=== PATIENT | female | born 1985 | race Caucasian/White ===

== ENCOUNTER → 2016-05-26 | Outpatient (CLI) | payer BC ==
[~2016-05-26] MED LIST: ADDE10 PO; ADDE5TAB PO; DIAZ5 PO; DICL75 PO; DOXY100C PO; HYDR-3535 PO; IBUP-232 PO; METR-1 PO; OXYC1TAB63 PO; ROBA750T3 PO; SAFYTAB PO; SENN1TAB PO; Z.0.BCPILL PO
[2016-05-26 12:11] LABS: BASOPHIL % 0.3 % (0.0-2.0); EOSINOPHIL # 0.1 TH/MM3 (0-0.4); EOSINOPHIL % 0.9 % (0.0-4.0); HEMATOCRIT 39.3 % (35.0-46.0); HEMO FLAGS DIFF FINAL; LYMPH % 29.3 % (9.0-44.0); LYMPHOCYTE # 2.2 TH/MM3 (1.0-4.8); MEAN CELL VOLUME 86.5 FL (80.0-100.0); MEAN CORPUSCULAR HGB CONC 34.6 % (32.0-36.0); MONO % 4.1 % (0.0-8.0); NEUT % 65.4 % (16.0-70.0); PLATELET COUNT 250 TH/MM3 (150-450); RED BLOOD COUNT 4.55 MIL/MM3 (4.00-5.30); RED CELL DISTRIBUTION WIDTH 12.5 % (11.6-17.2); WHITE BLOOD COUNT 7.6 TH/MM3 (4.0-11.0)
[2016-05-26 12:18] LABS: BACTERIA, URINE RARE /hpf; BLOOD, URINE NEG (NEG); GLUCOSE,URINE NEG (NEG); KETONE, URINE NEG (NEG); MUCUS URINE FEW /lpf (OCC); NITRITE,URINE NEG (NEG); PH, URINE 6.5 (5.0-8.5); SQUAMOUS EPITHELIAL CELL URINE <1 /hpf (0-5); URINE COLOR LIGHT-YELLOW (YELLW/STRAW)
[2016-05-26 12:36] LABS: ANION GAP 9 MEQ/L (5-15); BLOOD UREA NITROGEN 8 MG/DL (7-18); CHLORIDE 105 MEQ/L (98-107); GLOMERULAR FILTRATION RATE 89 ML/MIN (>89); GLUCOSE,FASTING 87 MG/DL (74-99); POTASSIUM 4.2 MEQ/L (3.5-5.1); SODIUM (NA) 140 MEQ/L (136-145)
[2016-05-26 12:42] LABS: BHCG SCREEN QUALITATIVE LESS THAN 1 MIU/ML (0-5)
== END ==
LOC: CPRE 11:24
PROVIDERS: ATTEND Obstetrics & Gynecology
DX: Z01.812 Encounter for preprocedural laboratory examination (principal); N92.0 Excessive and frequent menstruation with regular cycle; N94.6 Dysmenorrhea, unspecified; N94.10 Unspecified dyspareunia; N92.6 Irregular menstruation, unspecified
CPT/HCPCS: 36415; 80048; 81001; 84703; 85025; 86850; 86900; 86901

== ENCOUNTER 2016-05-28 09:25 | Observation (INO) | payer BC ==
[~2016-05-28] VITALS: Ht 170.2 cm; Wt 72.3 kg
[~2016-05-28 09:25] MED LIST changes: -ADDE5TAB PO; -DICL75 PO; -DOXY100C PO; -HYDR-3535 PO; -IBUP-232 PO; -METR-1 PO; -OXYC1TAB63 PO; -ROBA750T3 PO; -SAFYTAB PO; -SENN1TAB PO; -Z.0.BCPILL PO
[2016-05-28] MEDS ORDERED: LACTATED RINGER'S 1000 ML IV SCH (10:00)
[2016-05-28] MEDS ORDERED: SODIUM CHLORID 0.9% 500 ML IV SCH (10:00)
[2016-05-28] MEDS ORDERED: ceFAZolin 1,000 MG/NS 100 ML IV SCH ×2 (10:15)
[2016-05-28] MEDS ORDERED: INSULIN HUMAN REGULAR 1,000 UNITS/10 ML VIAL SQ PRN (10:15)
[2016-05-28] MEDS ORDERED: METOPROLOL TARTRATE 25 MG TAB PO PRN (10:15)
[2016-05-28 10:17] VITALS: BP 100/80; PULSE 74; RESP 20; TEMP 98; O2SAT 100
[2016-05-28] MEDS ORDERED: SAFYTAB PO (10:17)
[2016-05-28] MEDS ORDERED: ACETAMINOPHEN 1000 MG/100 ML VIAL IV ONE ×2 (13:33→17:16)
[2016-05-28] MEDS ORDERED: fentaNYL CITRATE 250 MCG/5 ML AMP ONE (15:51)
[2016-05-28] MEDS ORDERED: MIDAZOLAM HCL 2 MG/2 ML VIAL ONE (16:16)
[2016-05-28] MEDS ORDERED: ceFAZolin INJ 1,000 MG VIAL IV ONE (17:35)
[2016-05-28] MEDS ORDERED: MORPHINE SULFATE 4 MG/ML INJ ONE (18:50)
[2016-05-28] MEDS ORDERED: diphenhydrAMINE HCL 25 MG CAP PO PRN (19:45)
[2016-05-28] MEDS ORDERED: SODIUM CHLORIDE 0.9% FLUSH 5 ML FLUSH FLUSH PRN (19:45)
[2016-05-28] MEDS ORDERED: PROMETHAZINE HCL 25 MG TAB PO PRN (19:45)
[2016-05-28] MEDS ORDERED: oxyCODONE/ACETAMINOPHEN 5 MG/325 MG TAB PO PRN (19:45)
[2016-05-28] MEDS ORDERED: ZOLPIDEM TARTRATE 5 MG TAB PO PRN (19:45)
[2016-05-28] MEDS ORDERED: ONDANSETRON HCL 4 MG/2 ML VIAL IVP PRN (19:45)
[2016-05-28] MEDS ORDERED: HYDROmorphone HCL PF 1 MG/ML VIAL IVP PRN (19:45)
[2016-05-28] MEDS ORDERED: ONDANSETRON ODT 4 MG TAB PO PRN (19:45)
[2016-05-28] MEDS ORDERED: *morphine SULFATE 8 MG/ML PERIprocedure ONLY ONE ×2 (19:50→20:08)
[2016-05-28] MEDS ORDERED: *MEPERIDINE 25 MG INJ VIAL PERIprocedural Use ONLY ONE (19:50)
[2016-05-28] MEDS: LACTATED RINGER'S 1000 ML INJ 1,000 ML IV SCH (20:00)
[2016-05-28 20:30] VITALS: O2SAT 99
[2016-05-28 21:00] VITALS: BP 113/68; PULSE 71; RESP 18; TEMP 97.5
[2016-05-28] MEDS ORDERED: SODIUM CHLORIDE 0.9% FLUSH 5 ML FLUSH FLUSH SCH (21:00)
[2016-05-28] MEDS: DOCUSATE SODIUM 100 MG CAP PO SCH (21:00)
[2016-05-28] MEDS: IBUPROFEN 600 MG TAB PO PRN (21:53)
[2016-05-29] MEDS: oxyCODONE/ACETAMINOPHEN 5 MG/325 MG TAB PO PRN ×2 (01:09→08:02)
[2016-05-29 01:12] VITALS: BP 102/65; PULSE 86; RESP 18; TEMP 97.7
[2016-05-29] MEDS: LACTATED RINGER'S 1000 ML INJ 1,000 ML IV SCH (03:47)
[2016-05-29] MEDS: IBUPROFEN 600 MG TAB PO PRN (03:50)
[2016-05-29 04:04] VITALS: BP 105/67; PULSE 82; RESP 18; TEMP 98
[2016-05-29 06:06] LABS: AUTOMATED NEUTROPHIL # 6.4 TH/MM3 (1.8-7.7); BASOPHIL % 0.1 % (0.0-2.0); HEMO FLAGS DIFF FINAL; LYMPH % 10.6 % (9.0-44.0); LYMPHOCYTE # 0.8 TH/MM3 (1.0-4.8); MEAN CELL VOLUME 86.4 FL (80.0-100.0); MEAN CORPUSCULAR HEMOGLOBIN 30.1 PG (27.0-34.0); MEAN CORPUSCULAR HGB CONC 34.9 % (32.0-36.0); MONO % 2.5 % (0.0-8.0); NEUT % 86.8 % (16.0-70.0); PLATELET COUNT 198 TH/MM3 (150-450); RED BLOOD COUNT 3.94 MIL/MM3 (4.00-5.30); RED CELL DISTRIBUTION WIDTH 12.5 % (11.6-17.2); WHITE BLOOD COUNT 7.3 TH/MM3 (4.0-11.0)
[2016-05-29 06:32] LABS: POTASSIUM 4.4 MEQ/L (3.5-5.1)
[2016-05-29 07:50] VITALS: BP 105/71; PULSE 79; RESP 18; TEMP 97.9
[2016-05-29] MEDS: DOCUSATE SODIUM 100 MG CAP PO SCH (08:01)
--- NOTE | 2016-05-29 08:28 | HHI.PR ---
Subjective Remarks Doing well, pain is well controlled, eating well. Objective Vital Signs Vital Signs Date Time Temp Pulse Resp B/P Pulse Ox O2 Delivery O2 Flow Rate FiO2 05/29/16 04:04 98.0 82 18 105/67 05/29/16 01:12 97.7 86 18 102/65 05/28/16 21:00 97.5 71 18 113/68 05/28/16 20:30 97.5 71 14 131/79 99 Nasal Cannula 3 05/28/16 20:15 73 14 130/78 99 Nasal Cannula 3 05/28/16 20:00 79 14 130/78 99 Nasal Cannula 3 05/28/16 19:45 88 14 134/79 99 Nasal Cannula 3 05/28/16 19:41 97.7 110 15 139/85 99 Nasal Cannula 3 05/28/16 10:17 98.0 74 20 100/80 100 I/O 05/28/16 05/28/16 05/28/16 05/29/16 05/29/16 05/29/16 07:00 15:00 23:00 07:00 15:00 23:00 Intake Total 2675 ml 1150 ml Output Total 175 ml 1270 ml Balance 2500 ml -120 ml Intake Oral 400 ml 400 ml IV Total 775 ml 750 ml Other 1500 ml Output Urine Total 100 ml 1270 ml Estimated Blood Loss 75 ml Other 0 ml Result Diagram: 05/29/1651705/29/1618 Objective Remarks Chest is clear, regular rate and rhythm. Abdomen is soft and non-distended. Incision is clean and dry. Ext no CCE. A/P Assessment and Plan Post Op Day 1 Doing well Home today and return to office in two weeks. Shalini Youssef MD May 29, 2016 08:28
--- NOTE | 2016-05-29 08:28 | MP ---
cc: Shalini YOUSSEF Corrected Copy: 05/29/16 DATE OF SURGERY 05/28/2016 PREOPERATIVE DIAGNOSIS 1. Menorrhagia 2. Dysmenorrhea 3. Dysfunctional uterine bleeding 4. Severe deep dyspareunia POSTOPERATIVE DIAGNOSIS 1. Menorrhagia 2. Dysmenorrhea 3. Dysfunctional uterine bleeding 4. Severe deep dyspareunia PROCEDURE Laparoscopic-assisted vaginal hysterectomy and bilateral salpingectomy. ANESTHESIA General endotracheal intubation SURGEON Socorro Youssef MD FINDINGS Examination under anesthesia, the vagina was clean. The cervix was parous without lesions. The uterus was normal size, shape and consistency, anteverted and anteflexed and freely mobile. The adnexa were negative for masses. The laparoscopic exam revealed normal uterus, normal tubes, normal ovaries, normal anterior and posterior cul-de-sac. COMPLICATIONS None COUNTS The counts were correct. ESTIMATED BLOOD LOSS 75 cc. FLUIDS Crystalloids CONDITION The patient tolerated the procedure well and went to the recovery room in good condition. PROCEDURE IN DETAIL The patient was taken to the operating room, identified by name band and verbally given a general anesthetic and placed in dorsal lithotomy position. She was prepped and draped in the usual sterile fashion and a time-out was taken. Once we all agreed, proceeded with the examination under anesthesia and placing the Rodriguez catheter. A weighted speculum was placed in the vagina, the anterior lip of the cervix grasped with a single-tooth tenaculum. The cervix was then cannulized with a Hulka clamp for uterine manipulation. Changing our gloves, we went to the umbilical area. A small subumbilical incision was made and a #5 trocar was introduced under direct vision without difficulty. A pneumoperitoneum was created with 3 liters of CO2. Inferior lateral to the umbilicus on the left we put a 10-mm port under direct vision and a 5-mm port on the right for manipulation. At this point we placed her in Trendelenburg, visualized all the internal organs and proceeded with the hysterectomy. The round ligaments were taken down bilaterally and a bladder flap was created with the harmonic 7 scalpel. The mesosalpinx of the fallopian tubes were then taken down with harmonic scalpel and the broad ligament was taken down to the level of the uterine vessels without difficulty. The uterine vessels were skeletonized and taken to the level of the internal cervical os with the harmonic scalpel. Hemostasis was excellent. Once this had been accomplished the uterus blanched nicely. The bladder flap was pushed back a little farther out of harm's way and, using the harmonic scalpel, we transected the cervix without difficulty after removing the Hulka clamp. Once this had been accomplished the Kleppinger forceps was used to burn the endocervix and the cervical bed. Small bleeders were coagulated with the Kleppinger and a large amount of fluid was used to clean the pelvis out. At this point to the morcellator was placed into the 12-mm port and the specimen was morcellated without difficulty. We turned this in for pathologic evaluation, then we cleaned out the gutters and the cul-de-sac with a large amount of fluid and placed a piece of Interceed over the cervical stump to prevent adhesions. At this point and the 10-mm port was removed and the fascia was repaired with a 2-0 Vicryl. The air was released through the second puncture and the laparoscope was removed under direct vision without difficulty. The skin was repaired with a 4-0 Monocryl in a subcuticular manner. At this point all the instruments were removed. She tolerated the procedure well and went to the recovery room in good condition. R. MD EVANS Briceno/JULIO /7:32 PM /12:19 PM RAFAL
--- NOTE | 2016-05-29 08:33 | HHI.DCPOC ---
Discharge Care Plan Diagnosis: (1) Menorrhagia (2) Dysmenorrhea (3) Dyspareunia due to medical condition in female Report Symptoms to Your Doctor -Temperate above 100.5 degrees -Redness, of incision or excessive or foul smelling drainage -Unusual pain or calf pain -Increased vaginal bleeding -Painful or difficulty urinating -Feelings of extreme sadness or anxiety after 2 weeks Goals to Promote Your Health * To prevent worsening of your condition and complications * To maintain your health at the optimal level Directions to Meet Your Goals Take your medications as prescribed Follow your dietary instruction Follow activity as directed Ensure plenty of rest for recovery Drink fluids for hydration Keep your appointments as scheduled Take your immunizations and boosters as scheduled If your symptoms worsen call your PCP, if no PCP go to Urgent Care Center or Emergency Room Smoking is Dangerous to Your Health. Avoid second hand smoke Call the 24-hour crisis hotline for domestic abuse at Shalini Youssef MD May 29, 2016 08:32
[2016-05-29] MEDS ORDERED: PROPOFOL 200 MG/20 ML AMP IV ONE (12:00)
[2016-05-29] MEDS ORDERED: ONDANSETRON HCL 4 MG/2 ML VIAL IV PUSH ONE (12:00)
[2016-05-29] MEDS ORDERED: LACTATED RINGER'S 1000 ML INJ 1,000 ML IV ONE (12:00)
[2016-05-29] MEDS ORDERED: SODIUM CHLOR 0.9% 1000 ML INJ 1,000 ML IV ONE (12:00)
[2016-05-29] MEDS ORDERED: SIMETHICONE 125 MG CHEWABLE TAB PO SCH (14:00)
== END 2016-05-29 12:00 | disposition home or self-care (01) ==
LOC: HSDC 09:25 → HSDI 19:42 → H1EA 20:41
PROVIDERS: ADMIT Obstetrics & Gynecology; ATTEND Obstetrics & Gynecology
DX: N92.0 Excessive and frequent menstruation with regular cycle (principal); N94.6 Dysmenorrhea, unspecified; N93.8 Other specified abnormal uterine and vaginal bleeding; N94.10 Unspecified dyspareunia
CPT/HCPCS: 00840; 58552; 80048; 85025; 88307; C1765; G0378; J0131; J0690; J2175; J2250; J2270; J2405; J3010; J7030; J7120

== ENCOUNTER 2016-08-01 15:07 | Inpatient (IN) | payer BC ==
[~2016-08-01] VITALS: Ht 170.2 cm; Wt 76.0 kg
[~2016-08-01 15:07] MED LIST changes: +ONDANSETRON HCL 4 MG/2 ML VIAL IV PUSH ONE; +PROPOFOL 200 MG/20 ML AMP IV ONE
[2016-08-01 15:10] VITALS: BP 144/75; PULSE 88; RESP 18; TEMP 97.8; O2SAT 100
--- NOTE | 2016-08-01 15:26 | PD ---
HPI Chief Complaint: Syncope/Near-Syncope Time Seen by Provider: 15:14 Travel History International Travel<30 days: No Contact w/Intl Traveler<30days: No Traveled to known affect area: No History of Present Illness HPI The patient was seen and examined in the presence of the nurse. This patient complains of pelvic pain. Duration is one hour. She developed a severe pain in the suprapubic area out of the blue one hour ago. She says that at the same time she developed pain she had some light vaginal bleeding. No alleviating factors. Patient had a hysterectomy and salpingectomy bilaterally 2 months ago. Ovaries are in place. She denies any other medical history. Patient had sexual intercourse yesterday evening but had no problem regarding that. PFSH Past Medical History Blood Disorders: No Cancer: No Cardiovascular Problems: No Diabetes: No Diminished Hearing: No Endocrine: No Fibromyalgia: Yes Gastrointestinal Disorders: No Glaucoma: No Genitourinary: Yes (KIDNEY STONE ) Hepatitis: No Hypertension: No Immune Disorder: No Implanted Vascular Access Dvce: No Musculoskeletal: Yes (L5 S1 PROBLEMS , BROKEN L FOOT) Neurologic: No Psychiatric: Yes (ANXIETY) Reproductive: Yes Respiratory: No Immunizations Current: Yes Thyroid Disease: No : 3 Para: 2 Miscarriage: 1 Past Surgical History Abdominal Surgery: Yes (CHOLECYSTECTOMY 2008) AICD: No Arteriovenous Shunt: No Cardiac Surgery: No Section: Yes Cholecystectomy: Yes Ear Surgery: No Endocrine Surgery: No Eye Surgery: No Genitourinary Surgery: No Gynecologic Surgery: No Insulin Pump: No Joint Replacement: No Neurologic Surgery: No Oral Surgery: Yes (T&A) Pacemaker: No Thoracic Surgery: No Tonsillectomy: Yes Other Surgery: Yes (1997 LYMPH NODE NECK REMOVED) Social History Alcohol Use: Yes (SOCIALLY) Tobacco Use: No (QUIT 3 YRS AGO) Substance Use: No Allergies-Medications (Allergen,Severity, Reaction): Coded Allergies: No Known Allergies (Unverified , 08/01/16) Reported Meds & Prescriptions Reported Meds & Active Scripts Active Review of Systems General / Constitutional: No: Fever Eyes: No: Visual changes HENT: No: Headaches Cardiovascular: No: Chest Pain or Discomfort Respiratory: No: Shortness of Breath Gastrointestinal: No: Abdominal Pain Genitourinary: Positive: Pelvic Pain, Vaginal Bleeding, No: Dysuria Musculoskeletal: No: Pain Skin: No Rash Neurologic: No: Weakness Psychiatric: No: Depression Endocrine: No: Polydipsia Hematologic/Lymphatic: No: Easy Bruising Physical Exam Narrative GENERAL: Well-nourished, well-developed patient with pelvic pain. SKIN: Focused skin assessment reveals no rash and nodules. Skin is Warm and dry. HEAD: Atraumatic. Normocephalic. EYES: Pupils equal and round. No scleral icterus. No injection or drainage. ENT: No nasal bleeding or discharge. Mucous membranes pink and moist. NECK: Trachea midline. No JVD. CARDIOVASCULAR: Regular rate and rhythm. No murmur appreciated. RESPIRATORY: No accessory muscle use. Clear to auscultation. Breath sounds equal bilaterally. GASTROINTESTINAL: Abdomen soft, suprapubic area is tender without rebound or guarding, nondistended. Hepatic and splenic margins not palpable. MUSCULOSKELETAL: No obvious deformities. No clubbing. No cyanosis. No edema. NEUROLOGICAL: Awake and alert. No obvious cranial nerve deficits. Motor grossly within normal limits. Normal speech. PSYCHIATRIC: Appropriate mood and affect; insight and judgment normal. Pelvic: Speculum exam reveals a lot of yellowish serous fluid in the vault. I suctioned this away. I can intestine in the back of the vaginal vault. On bimanual exam it seems like the posterior cervical cuff is dehisced, seems to have a tear approximately 3 inches long Data Data Last Documented VS Vital Signs Date Time Temp Pulse Resp B/P Pulse Ox O2 Delivery O2 Flow Rate FiO2 08/01/16 16:12 88 16 126/79 100 Room Air 08/01/16 15:10 97.8 Orders Iv Access Insert/Monitor (08/01/16 15:21) Complete Blood Count With Diff (08/01/16 15:21) Basic Metabolic Panel (Bmp) (08/01/16 15:21) Ondansetron Inj (Zofran Inj) (08/01/16 15:30) Sodium Chlor 0.9% 1000 Ml Inj (Ns 1000 M (08/01/16 15:30) Morphine Inj (Morphine Inj) (08/01/16 15:30) Prothrombin Time / Inr (Pt) (08/01/16 15:54) Act Partial Throm Time (Ptt) (08/01/16 15:54) Type And Screen (08/01/16 15:54) Ampicillin-Sulbactam Inj (Unasyn Inj) (08/01/16 16:00) Admit Order (Ed Use Only) (08/01/16 16:22) Labs Laboratory Tests Test 08/01/16 15:20 White Blood Count 12.4 TH/MM3 Red Blood Count 4.67 MIL/MM3 Hemoglobin 13.6 GM/DL Hematocrit 40.7 % Mean Corpuscular Volume 87.2 FL Mean Corpuscular Hemoglobin 29.1 PG Mean Corpuscular Hemoglobin 33.3 % Concent Red Cell Distribution Width 13.1 % Platelet Count 285 TH/MM3 Mean Platelet Volume 8.6 FL Neutrophils (%) (Auto) 83.4 % Lymphocytes (%) (Auto) 13.4 % Monocytes (%) (Auto) 2.7 % Eosinophils (%) (Auto) 0.3 % Basophils (%) (Auto) 0.2 % Neutrophils # (Auto) 10.4 TH/MM3 Lymphocytes # (Auto) 1.7 TH/MM3 Monocytes # (Auto) 0.3 TH/MM3 Eosinophils # (Auto) 0.0 TH/MM3 Basophils # (Auto) 0.0 TH/MM3 CBC Comment AUTO DIFF Sodium Level 140 MEQ/L Potassium Level 3.4 MEQ/L Chloride Level 104 MEQ/L Carbon Dioxide Level 26.5 MEQ/L Anion Gap 10 MEQ/L Blood Urea Nitrogen 7 MG/DL Creatinine 0.88 MG/DL Estimat Glomerular Filtration 75 ML/MIN Rate Random Glucose 116 MG/DL Calcium Level 9.3 MG/DL MDM Medical Decision Making Medical Screen Exam Complete: Yes Emergency Medical Condition: Yes Medical Record Reviewed: Yes Differential Diagnosis Differential diagnosis includes PID, ovarian cyst, ovarian torsion, endometriosis. Narrative Course I have reviewed the patient's electronic medical record. Reviewed her operative note from Dr. Guillaume May 2016 IV placed I gave her IV morphine and IV Zofran for symptom relief and 1 L normal saline IV bolus CBC shows minor leukocytosis Metabolic profile is normal This patient is critically ill with a dehiscence of a surgical site at the posterior cervical cuff. There is a large tear with leaking peritoneal fluid and a lot of visible intestine. Patient in a high risk for peritonitis and I spoke emergently with her surgeon Dr. Guillaume. He recommended emergent transfer to the main ER and he will have his partner come to the bedside and evaluate the patient and take her to the operating room for repair. I placed a second IV Type and screen sent I gave her a dose of IV Unasyn I will call report to the ER physician when I see what room she has been assigned to. I reviewed with her family members she is emergently transferred to the main ER Critical Care Narrative Aggregate critical care time was 35 minutes. Time to perform other separately billable procedures was not included in the critical care time. My time did not include minutes spent treating any other patients simultaneously or on activities that did not directly contribute to the patient's treatment. The services I provided to this patient were to treat and/or prevent clinically significant deterioration that could result in: Peritonitis, intestinal injury, hemorrhagic shock I provided critical care services requiring my management, as noted below: Chart data review, documentation time, medication orders and management, vital sign assessments/reviewing monitor data, ordering and reviewing lab tests, ordering and interpreting/reviewing x-rays and diagnostic studies, care of the patient and discussion of the patient with the admitting physicians. Diagnosis Primary Impression: Peritonitis (acute) generalized Additional Impression: Surgical wound dehiscence Qualified Code: T81.31XA - Surgical wound dehiscence, initial encounter Admitting Information Admitting Physician Requests: it Cheng Graves MD Aug 01, 2016 15:26
[2016-08-01] MEDS ORDERED: MORPHINE SULFATE 4 MG/ML INJ IV PUSH ONE (15:30)
[2016-08-01] MEDS ORDERED: ONDANSETRON HCL 4 MG/2 ML VIAL IVP ONE (15:30)
[2016-08-01] MEDS ORDERED: SODIUM CHLOR 0.9% 1000 ML INJ 1,000 ML IV ONE (15:30)
[2016-08-01 15:51] LABS: AUTOMATED NEUTROPHIL # 10.4 TH/MM3 (1.8-7.7); BASOPHIL % 0.2 % (0.0-2.0); EOSINOPHIL % 0.3 % (0.0-4.0); HEMATOCRIT 40.7 % (35.0-46.0); LYMPH % 13.4 % (9.0-44.0); LYMPHOCYTE # 1.7 TH/MM3 (1.0-4.8); MEAN CELL VOLUME 87.2 FL (80.0-100.0); MEAN CORPUSCULAR HEMOGLOBIN 29.1 PG (27.0-34.0); MEAN CORPUSCULAR HGB CONC 33.3 % (32.0-36.0); MONO % 2.7 % (0.0-8.0); NEUT % 83.4 % (16.0-70.0); PLATELET COUNT 285 TH/MM3 (150-450); RED BLOOD COUNT 4.67 MIL/MM3 (4.00-5.30); RED CELL DISTRIBUTION WIDTH 13.1 % (11.6-17.2); WHITE BLOOD COUNT 12.4 TH/MM3 (4.0-11.0)
[2016-08-01 15:53] LABS: POTASSIUM 3.4 MEQ/L (3.5-5.1)
[2016-08-01 15:54] LABS: HEMO FLAGS AUTO DIFF
[2016-08-01 15:56] LABS: BICARBONATE 26.5 MEQ/L (21.0-32.0)
[2016-08-01] MEDS ORDERED: AMPICILLIN-SULBACTAM INJ 3 GM in SODIUM CHLORIDE 0.9% INJ 100 ML IV ONE (16:00)
[2016-08-01 16:12] VITALS: BP 126/79; PULSE 88; RESP 16; O2SAT 100
[2016-08-01 16:33] LABS: APTT (PATIENT) 24.7 SEC (24.3-30.1); PROTHROMBIN TIME - PATIENT 11.5 SEC (9.8-11.6)
[2016-08-01 16:53] VITALS: BP 118/70; PULSE 103; RESP 17; O2SAT 100
[2016-08-01 17:00] LABS: PLATELET ESTIMATE SMEAR NORMAL (NORMAL); PLATELET MORPHOLOGY NORMAL (NORMAL); SCAN/DIFF AUTO DIFF CONFIRMED
[2016-08-01] MEDS ORDERED: LACTATED RINGER'S 1000 ML INJ 1,000 ML IV SCH (17:15)
[2016-08-01] MEDS ORDERED: ONDANSETRON HCL 4 MG/2 ML VIAL IV PUSH ONE (17:30)
[2016-08-01] MEDS ORDERED: HYDROmorphone HCL PF 1 MG/ML VIAL IV PUSH ONE (17:30)
--- NOTE | 2016-08-01 18:17 | MH ---
cc: Shalini NICHOLS MD DATE OF ADMISSION 08/01/2016 HISTORY OF PRESENT ILLNESS This is a 30-year-old female who had a laparoscopic-assisted vaginal hysterectomy on 05/28/2016. She was having menorrhagia, irregular bleeding and severe dyspareunia. The surgery went well. She had no postoperative complications. At the six week visit I noticed a little granulation tissue at the cuff and used a little silver nitrate to coagulate this. I saw her two weeks later and the vaginal cuff looked perfectly healed without any dehiscence or any other problems. Today she was fairly active. She had sex last night and everything was fine. She got up this morning and was doing her regular routine hours. She did just move and was lifting quite a few heavy boxes. Today she was helping a friend move and she lifted something not to heavy, but she twisted and felt a gush of fluid and tremendous pain in her pelvis. She went home, took a shower and laid down. The pain increased and she was told to come to the emergency department. When she arrived at the emergency department, Doctor Star found she had ruptured her vaginal cuff. I had her transferred up to the [facility] so we could do surgery. I have discussed the surgery with her. She understands the risks and benefits. There is no other way to really cure this. PAST MEDICAL HISTORY 1. Dysmenorrhea, irregular bleeding and dyspareunia 2. Fibromyalgia PAST SURGICAL HISTORY 1. delivery in 2011 2. Tubal ligation in 2011 3. Hysteroscope D&C in the office in 2015 4. Laparoscopic-assisted vaginal hysterectomy in 2016. OBSTETRICAL HISTORY She is para 1-1-2-2. She had one section and tubal ligation. SOCIAL HISTORY She is . She does not drink. She is a nonsmoker. She quit in 2010. She does not take drugs. MEDICATIONS Current are Adderall 5 mg one p.o. q. day. FAMILY HISTORY Remarkable for high blood pressure in her father. REVIEW OF SYSTEMS She has had no fevers, no chills. SKIN: There are no lesions present. CARDIOVASCULAR: She has no chest pain or pressure. PULMONARY: She has some shortness of breath when she had the severe pain. She is much better now. GASTROINTESTINAL: She denies any constipation, bloody stools. Normal micturition pattern. HEMATOLOGIC: She denies any bleeding from the nose, mouth, rectum or voiding. No easy bruising. PHYSICAL EXAMINATION GENERAL: A well-developed, well-nourished female in no acute distress. She is laying comfortably on the gurney. VITAL SIGNS: Her temperature is 97.8. Her pulse is 88. Her respirations are 18. Her blood pressure is 144/75, pulse oximetry is 100. HEENT: Normocephalic, atraumatic. NECK: Supple. Trachea is in the midline. CHEST: Clear to auscultation. HEART: Regular rate and rhythm without murmur. ABDOMEN: Soft, nondistended. Suprapubically, she is +2 tender. There is no rebound present. PELVIC: Exam is deferred to the operating room. EXTREMITIES: There is no clubbing, cyanosis or edema. ASSESSMENT/PLAN 1. Dehiscence of the vaginal cuff. She needs to be taken to the operating room and copiously irrigate that area. If there is necrotic tissue at the top, I would consider removing that tissue and reapproximating the cuff with some Vicryl or chromic suture. She needs to remain without sex for three months after this repair. 2. She is slightly hypokalemic with a potassium at 3.4. I will give her some lactated Ringer's. I have already spoken to Dr. Hickey and Dr. Rodriguez about this patient as I am going off call. R. MD EVANS Briceno/ /5:06 PM /5:59 PM
[2016-08-01] MEDS ORDERED: SODIUM CHLORIDE 0.9% FLUSH 10 ML FLUSH IV FLUSH PRN (21:15)
[2016-08-01] MEDS ORDERED: HYDROmorphone HCL PF 1 MG/ML VIAL IVP PRN (21:15)
[2016-08-01] MEDS ORDERED: diphenhydrAMINE HCL 25 MG CAP PO PRN (21:15)
[2016-08-01] MEDS ORDERED: LORazepam 0.5 MG TAB PO PRN (21:15)
[2016-08-01] MEDS ORDERED: ZOLPIDEM TARTRATE 5 MG TAB PO PRN (21:15)
[2016-08-01] MEDS ORDERED: ONDANSETRON HCL 4 MG/2 ML VIAL IVP PRN (21:15)
[2016-08-01] MEDS ORDERED: oxyCODONE/ACETAMINOPHEN 5 MG/325 MG TAB PO PRN (21:15)
[2016-08-01] MEDS ORDERED: MORPHINE SULFATE 4 MG/ML INJ ONE (21:16)
[2016-08-01] MEDS ORDERED: MEPERIDINE HCL 25 MG/ML VIAL ONE (21:17)
--- NOTE | 2016-08-01 21:17 | HHI.PR ---
Immediate Post Op Note Procedure Date: Aug 01, 2016 Pre Op Diagnosis: (1) Surgical wound dehiscence (2) Evisceration of bowel Post Op Diagnosis: (1) Surgical wound dehiscence (2) Evisceration of bowel (3) Vaginal cuff cellulitis Surgeon: Co-Surgeons: MD Tanja Briceno MD Reclaimer(s): [facility] staff Procedure: Exam under anesthesia, revision of vaginal cuff, irrigation of vaginal cuff, correction of small bowel evisceration Findings: 2 x 2 cm portion of small bowel prolapsed through central defect in vaginal cuff , history of hysterectomy 05/29/16 for benign indications; purulent material dissected off necrotic appearing granulation tissue along upper edge; normal appearing bladder, normal appearing peritoneum of posterior culdesac Complications: none Specimen(s) removed: necrotic appearing granulation tissue of anterior and posterior vaginal cuff, small area of necrotic/abscessed appearing tissue at cuff Estimated blood loss: 50 mL Anesthesia: General, LMA Drains: None Fluids: 1000 mL IVF Patient to: PACU Patient Condition: Good Tanja Rodriguez MD Aug 01, 2016 21:17
[2016-08-01] MEDS ORDERED: MIDAZOLAM HCL 2 MG/2 ML VIAL ONE (21:21)
[2016-08-01] MEDS ORDERED: *ONDANSETRON 4 MG VIAL PERIprocedural Use ONLY ONE (21:23)
[2016-08-01] MEDS: ACETAMINOPHEN 1000 MG/100 ML VIAL IV SCH (21:30)
[2016-08-01] MEDS: SODIUM CHLORIDE 0.9% FLUSH 10 ML FLUSH IV FLUSH SCH (22:00)
[2016-08-01] MEDS: LACTATED RINGER'S 1000 ML INJ 1,000 ML IV SCH (22:00)
[2016-08-01] MEDS ORDERED: AMPICILLIN-SULBACTAM INJ 3 GM in SODIUM CHLORIDE 0.9% INJ 100 ML IV SCH (22:00)
[2016-08-01] MEDS: KETOROLAC TROMETHAMINE 30 MG/ML (IVP) VIAL IVP SCH (22:28)
[2016-08-01] MEDS: metroNIDAZOLE 500 MG INJ 100 ML IV SCH (22:30)
[2016-08-02] VITALS (8 sets, daily range): BP systolic 109–119; BP diastolic 62–76; PULSE 63–80; RESP 15–16; TEMP 96.4–97.9; O2SAT 97–100
[2016-08-02] MEDS: AMPICILLIN-SULBACTAM INJ 3 GM in SODIUM CHLORIDE 0.9% INJ 100 ML IV SCH ×3 (00:12→13:08)
[2016-08-02] MEDS: KETOROLAC TROMETHAMINE 30 MG/ML (IVP) VIAL IVP SCH ×2 (03:57→09:16)
[2016-08-02] MEDS: ACETAMINOPHEN 1000 MG/100 ML VIAL IV SCH ×2 (04:02→09:17)
--- NOTE | 2016-08-02 05:29 | HHI.PR ---
Subjective Remarks Had a little trouble sleeping overnight; pain well controlled with IV Ofirmev & Toradol scheduled; mayorga in place with good output, no flatus yet, pain 2/10, "so much better than before the surgery." Mild lower abdominal cramping & soreness. Objective Vital Signs Vital Signs Date Time Temp Pulse Resp B/P Pulse Ox O2 Delivery O2 Flow Rate FiO2 08/02/16 04:00 96.4 77 16 111/62 99 08/02/16 01:05 17 08/02/16 00:00 97.7 74 16 119/75 97 08/01/16 23:25 18 08/01/16 22:30 97.6 74 20 116/65 100 Nasal Cannula 2 08/01/16 22:15 76 16 16/55 100 Nasal Cannula 2 08/01/16 22:00 88 18 115/57 100 Nasal Cannula 2 08/01/16 21:30 93 19 112/60 100 Nasal Cannula 3 08/01/16 21:15 97.5 104 19 117/59 100 Nasal Cannula 3 08/01/16 18:42 16 08/01/16 16:53 103 17 118/70 100 Room Air 08/01/16 16:20 15 08/01/16 16:12 88 16 126/79 100 Room Air 08/01/16 15:10 97.8 88 18 144/75 100 I/O 08/01/16 08/01/16 08/01/16 08/02/16 08/02/16 08/02/16 07:00 15:00 23:00 07:00 15:00 23:00 Intake Total 1200 ml Output Total 200 ml Balance 1000 ml Intake Oral 100 ml Other 1100 ml Output Urine Total 150 ml Estimated Blood Loss 50 ml Result Diagram: 08/01/16 1520 08/01/16 1520 Objective Remarks Chest is clear, regular rate and rhythm. Abdomen is soft and non-distended. Bowel sounds are present in all 4 quadrants. Pad is dry. Mayorga in place with good clear UOP. Ext no CCE. A/P Assessment and Plan Postop day #1 s/p exam under anesthesia, revision of vaginal cuff dehiscence and replacement of eviscerated small bowel; previous surgery [facility] 05/28/[address] Youssef 1) postop day #1: remove mayorga, slowly advance diet, allow to shower later today ; reviewed at length precautions and postop care due to unexpected & delayed dehiscence with evisceration; plan IV antibiotics for 24h then transition to po ; will plan for 7d total of therapy; abscess was noted at cuff, extensive irrigation and debridement intraoperatively; no signs of peritonitis currently 2) dispo: not meeting criteria, anticipate d/c to home tmrw 08/03/16 if does well today Tanja Rodriguez MD Aug 02, 2016 05:29
[2016-08-02] MEDS: metroNIDAZOLE 500 MG INJ 100 ML IV SCH ×2 (06:14→14:23)
[2016-08-02 08:11] LABS: AUTOMATED NEUTROPHIL # 9.2 TH/MM3 (1.8-7.7); BASOPHIL % 0.1 % (0.0-2.0); HEMATOCRIT 34.1 % (35.0-46.0); HEMO FLAGS DIFF FINAL; LYMPH % 9.9 % (9.0-44.0); LYMPHOCYTE # 1.1 TH/MM3 (1.0-4.8); MEAN CELL VOLUME 87.3 FL (80.0-100.0); MEAN CORPUSCULAR HEMOGLOBIN 29.2 PG (27.0-34.0); MEAN CORPUSCULAR HGB CONC 33.4 % (32.0-36.0); MONO % 3.2 % (0.0-8.0); NEUT % 86.8 % (16.0-70.0); PLATELET COUNT 207 TH/MM3 (150-450); RED BLOOD COUNT 3.91 MIL/MM3 (4.00-5.30); RED CELL DISTRIBUTION WIDTH 13.3 % (11.6-17.2); WHITE BLOOD COUNT 10.6 TH/MM3 (4.0-11.0)
[2016-08-02 08:19] LABS: BICARBONATE 24.9 MEQ/L (21.0-32.0); POTASSIUM 3.8 MEQ/L (3.5-5.1)
[2016-08-02] MEDS: DOCUSATE SODIUM 50 MG/SENNA 8.6 MG TAB PO SCH ×2 (09:15→20:38)
[2016-08-02] MEDS: SODIUM CHLORIDE 0.9% FLUSH 10 ML FLUSH IV FLUSH SCH ×2 (09:17→20:38)
[2016-08-02] MEDS: oxyCODONE/ACETAMINOPHEN 5 MG/325 MG TAB PO PRN (13:07)
[2016-08-02] MEDS: LACTATED RINGER'S 1000 ML INJ 1,000 ML IV SCH (14:29)
--- NOTE | 2016-08-02 16:57 | HHI.PR ---
[employer] Note Note Came to check on pt & see how she has progressed today. Up to shower, has voided without difficulty, no flatus yet but "feels like it's going to happen." Tolerated soup for lunch, ordered dinner. Pain controlled with IV & po, will transition to po now s/p 24h of IV antibiotics will start oral this evening, will continue as outpt doxy & flagyl bid x 5d once discharged anticipate d/c to home tmrw if +flatus & good pain control on oral meds overnight will d/c IV fluids if tolerates diet this evening Tanja Rodriguez MD Aug 02, 2016 16:57
[2016-08-02] MEDS ORDERED: SENN1TAB PO (17:06)
[2016-08-02] MEDS ORDERED: OXYC1TAB63 PO (17:06)
[2016-08-02] MEDS ORDERED: DOXY100C PO (17:06)
[2016-08-02] MEDS ORDERED: IBUP-232 PO (17:06)
[2016-08-02] MEDS ORDERED: METR-1 PO (17:06)
[2016-08-02] MEDS: IBUPROFEN 600 MG TAB PO SCH ×3 (18:00→23:28)
[2016-08-02] MEDS: DOXYCYCLINE HYCLATE 100 MG CAP PO SCH (20:38)
[2016-08-02] MEDS: metroNIDAZOLE 500 MG TAB PO SCH (23:28)
[2016-08-03] VITALS: BP 97/50; PULSE 79; RESP 16; TEMP 97.3; O2SAT 98
[2016-08-03 05:12] VITALS: BP 101/68; PULSE 68; RESP 15; TEMP 97.7; O2SAT 100
[2016-08-03] MEDS: IBUPROFEN 600 MG TAB PO SCH (05:58)
[2016-08-03] MEDS: SODIUM CHLORIDE 0.9% FLUSH 10 ML FLUSH IV FLUSH SCH (08:17)
[2016-08-03 08:45] VITALS: BP 110/72; PULSE 67; RESP 16; TEMP 97.7; O2SAT 96
--- NOTE | 2016-08-03 09:08 | HHI.PR ---
Subjective Remarks Doing well, pain is well controlled, tolerating diet, passing flatus, voiding without difficulty. Objective Vital Signs Vital Signs Date Time Temp Pulse Resp B/P Pulse Ox O2 Delivery O2 Flow Rate FiO2 08/03/16 05:12 97.7 68 15 101/68 100 08/03/16 00:00 97.3 79 16 97/50 98 08/02/16 20:00 97.9 75 16 116/64 100 08/02/16 17:39 99 21 08/02/16 16:00 97.6 75 15 112/76 100 08/02/16 13:00 96.9 80 15 112/69 99 08/02/16 11:39 97 21 I/O 08/02/16 08/02/16 08/02/16 08/03/16 08/03/16 08/03/16 07:00 15:00 23:00 07:00 15:00 23:00 Intake Total 720 ml 480 ml 720 ml Output Total 200 ml Balance 520 ml 480 ml 720 ml Intake Oral 720 ml 480 ml 720 ml Output Urine Total 200 ml # Voids 2 Result Diagram: 08/02/16 0638 08/02/16 0638 Objective Remarks Chest is clear, regular rate and rhythm. Abdomen is soft and non-distended. Bowel sounds are present & normal in all 4 quadrants. Pad is dry. Ext no CCE. A/P Assessment and Plan Postop day #2 s/p exam under anesthesia, revision of vaginal cuff dehiscence and replacement of eviscerated small bowel; previous surgery [facility] 05/28/[address] Youssef 1) postop day #2: doing well, meeting all d/c criteria; reviewed again at length precautions and postop care due to unexpected & delayed dehiscence with evisceration; s/p IV antibiotics for 24h then transitioned to po doxy & flagyl; Rx for outpt therapy x 5 addt'l days (7d total); abscess was noted at cuff at time of surgery, extensive irrigation and debridement intraoperatively; no signs of peritonitis currently 2) dispo: meeting criteria, plan office f/u with Dr. Youssef 1-2 wks Tanja Rodriguez MD Aug 03, 2016 09:08
--- NOTE | 2016-08-03 09:14 | HHI.DS ---
Discharge Summary Admission Date Aug 01, 2016 at 16:25 Discharge Date: Aug 03, 2016 Admitting Diagnosis cervical cuff dehiscence with exposed intestine (1) Vaginal cuff cellulitis Diagnosis: Principal (2) Surgical wound dehiscence Diagnosis: Principal (3) Evisceration of bowel Diagnosis: Principal Procedures exam under anesthesia, revision of vaginal cuff, correction of small bowel evisceration, copious irrigation of peritoneal cavity Brief History [address] aCvazos with history of severe dysmenorrhea, menorrhagia, not controlled with medical management who had LAVH, b/l salpingectomy on with Dr. Youssef. Pt did well initially and was cleared to return to normal activity at 6 wk postop visit. Thursday08/01/16 pt was moving and twisted to lift a backpack, felt a severe sharp pain in low pelvis with gush of fluid. Pain did not resolve after resting, pt came in to ER with finding of visualized small bowel at vaginal vault and cuff dehiscence. Pt admitted for emergency surgery and correction of problem. CBC/BMP: 08/02/16 0638 08/02/16 0638 Significant Findings Laboratory Tests Test 08/01/16 08/02/16 15:20 06:38 White Blood Count 12.4 TH/MM3 (4.0-11.0) Neutrophils (%) (Auto) 83.4 % 86.8 % (16.0-70.0) (16.0-70.0) Neutrophils # (Auto) 10.4 TH/MM3 9.2 TH/MM3 (1.8-7.7) (1.8-7.7) Potassium Level 3.4 MEQ/L (3.5-5.1) Estimat Glomerular Filtration 75 ML/MIN (>89) Rate Random Glucose 116 MG/DL 114 MG/DL (74-106) (74-106) Red Blood Count 3.91 MIL/MM3 (4.00-5.30) Hemoglobin 11.4 GM/DL (11.6-15.3) Hematocrit 34.1 % (35.0-46.0) Blood Urea Nitrogen 5 MG/DL (7-18) Calcium Level 8.4 MG/DL (8.5-10.1) PE at Discharge NAD, A&Ox3 CTA b/l no wheeze RRR no murmur Abd soft NTND +BS pad dry Ext no c/c/e x 4 Hospital Course Pt had uncomplicated operative course with finding of abscess at cuff and full dehiscence with approximately 2x2 cm portion of pink, moist, non-damaged small bowel protruding. Postoperatively pt had good control of pain with IV medications, was able to void and tolerate diet. By POD#2 pt was passing flatus , ambulating, and pain controlled with oral meds. Never febrile. Normal electrolytes on POD#1. Once pt was meeting d/c criteria she was discharged to home with strict and specific postop precautions. Pt Condition on Discharge: Good Discharge Disposition: Discharge Home Discharge Instructions DIET: Follow Instructions for: As Tolerated, No Restrictions Activities you can perform: Non Weight Bearing, Shower Only-No Bath, Pelvic Rest Activities to avoid: Lifting/Bending, Strenuous Activity, Driving, Sexual Activity Tanja Rodriguez MD Aug 03, 2016 09:13
[2016-08-03] MEDS: DOCUSATE SODIUM 50 MG/SENNA 8.6 MG TAB PO SCH (09:20)
[2016-08-03] MEDS: metroNIDAZOLE 500 MG TAB PO SCH (09:20)
[2016-08-03] MEDS: DOXYCYCLINE HYCLATE 100 MG CAP PO SCH (09:20)
[2016-08-03] MEDS: oxyCODONE/ACETAMINOPHEN 5 MG/325 MG TAB PO PRN (11:06)
--- NOTE | 2016-08-04 08:15 | MP ---
cc: TYLER GODOY M.D. DATE OF SURGERY August 01, 2016 PREOPERATIVE DIAGNOSES 1. Acute abdominal pain. 2. Vaginal vault dehiscence. 3. Evisceration of small bowel from surgical wound. POSTOPERATIVE DIAGNOSIS 1. Acute abdominal pain. 2. Vaginal vault dehiscence. 3. Evisceration of small bowel from surgical wound. 4. Cellulitis and abscess of vaginal cuff/surgical wound. INDICATIONS Parul Casey is a 30-year-old who is approximately 8 weeks out from a laparoscopic-assisted total vaginal hysterectomy with bilateral salpingectomy with Dr. Youssef back on May 28, 2016 for benign indications. She had done well in her postoperative time frame. She had been seen for her 6-week visit, had been cleared to return to normal activity. At one point during her postoperative course when she was seen in the office around 4 weeks postop, she had small amount of granulation tissue at the vaginal cuff that Dr. Youssef applied silver nitrate to with good effect and the patient had had no immediate issues after that point. Today patient reports had been moving into a new house, had been lifting some boxes and she stated that she had twisted to lift a heavy backpack and she felt a gush of fluid as well as intense pain in her lower abdomen and pelvis. She continued to have increasing pain despite resting and so she came into the emergency department with the findings as listed above. As such, she was taken for emergency surgery. PROCEDURE PERFORMED 1. Exam under anesthesia. 2. Revision of vaginal cuff with excision of the granulation tissue. 3. Correction of the small bowel evisceration. 4. Copious irrigation of vagina and peritoneal cavity. CO-SURGEONS MD Tyler Briceno MD TYPE OF ANESTHESIA General using LMA. COUNTS Sponge, lap, instrument and needle counts were correct x 2 at the conclusion of the procedure. COMPLICATIONS None. ESTIMATED BLOOD LOSS 50 mL. IV FLUID REPLACEMENT 1 liter. URINE OUTPUT 50 mL. PROPHYLAXIS Unasyn had been given preoperatively. SCDs were on and functioning throughout the entire case. INTRAOPERATIVE FINDINGS Approximately a 2 x 2-cm loop of small bowel visible in the vagina protruding from interrupted area centrally from the vaginal cuff. The vaginal cuff itself was somewhat necrotic-appearing anteriorly with a small pocket of abscess and cellulitis. The area of small bowel was still pink with good blood supply. There was no sign of infection or injury to the small bowel. It was able to be irrigated and reduced without complication. The bladder was also evaluated and there were no areas of abscess or denuding near the bladder. SPECIMEN None. PROCEDURE IN DETAIL After reviewing the informed consent, the patient was taken to the operating room where she was laid in dorsal supine position and general anesthesia using LMA was administered without difficulty and found to be adequate. Due to the severity and complicated nature of the surgical situation, two surgeons, both myself and Dr. Youssef were both present to perform the exploration and procedure. The patient was gently elevated into high lithotomy position in [facility] and Dr. Youssef prepped the patient himself. The patient was then draped appropriately and very gently. Rodriguez catheter was placed using sterile technique. Attention was turned vaginally where a weighted speculum was placed posteriorly and a right-angle retractor was used anteriorly to visualize the vaginal cuff. At that time the area of eviscerated small bowel was visualized. Irrigation with warm sterile saline began. The bowel was gently placed back in the peritoneal cavity. Additional copious irrigation was performed. Purulent drainage was noted. Irrigation was performed until all drainage was clear. The granulation tissue around the dehisced vaginal cuff was dissected away from the healthy underlying peritoneum and was excised allowing fresh clean edges to the vaginal vault. Additional irrigation with suction was performed. The posterior cuff was then reinforced with 0-Vicryl in a running fashion from left to right uterosacral ligaments. Excellent hemostasis was noted. The rest of the cuff was then additionally irrigated and suctioned with clean healthy tissue noted in all areas. The bladder was back-filled and the bladder mucosa was noted to be completely intact with no areas of denuding and bladder was far from the cuff edges. The rest of the cuff was then closed in a [id number] manner with 0 Vicryl with excellent hemostasis, excellent elevation of the newly exposed healthy vaginal tissue. Additional irrigation with suction of the vagina was then performed. Additional Betadine wash of the vagina was then performed. All instruments were removed vaginally. The procedure then concluded at this point. The patient tolerated the procedure well. She was removed from the stirrups, brought back to dorsal supine position. She was awoken from anesthesia without complication. The Rodriguez remained in place postoperatively. DISPOSITION Due to the serious nature of small bowel evisceration and cuff dehiscence, the patient is admitted for continued management, IV antibiotics and close monitoring and she is at high risk for ileus and peritonitis. We will watch her closely for likely two postoperative days. MD KAMAR Meek/SSB /9:31 PM /7:57 AM RAFAL
== END 2016-08-03 11:21 | disposition home or self-care (01) | DRG 908 ==
LOC: PHED 15:07 → PHEDA 16:25 → N06B 20:45 → HOCB 21:03
PROVIDERS: ADMIT Obstetrics & Gynecology; ATTEND Obstetrics & Gynecology
PROC: 0UBG7ZZ Excision of Vagina, Via Natural or Artificial Opening (ICD-10-PCS; 2016-08-01)
PROC: 0UQG7ZZ Repair Vagina, Via Natural or Artificial Opening (ICD-10-PCS; principal; 2016-08-01 19:48)
DX: T81.32XA Disruption of internal operation (surgical) wound, not elsewhere classified, initial encounter (principal); L03.818 Cellulitis of other sites; N76.0 Acute vaginitis; K46.9 Unspecified abdominal hernia without obstruction or gangrene; E87.6 Hypokalemia
CPT/HCPCS: 80048; 85025; 85610; 85730; 86850; 86900; 86901; 94150; 96365; 96375; J0131; J0295; J1170; J1885; J2175; J2250; J2270; J2405; J3010; J7030; J7120

== ENCOUNTER 2016-10-17 15:44 | Observation (INO) | payer BC ==
[~2016-10-17] VITALS: Ht 170.2 cm; Wt 78.0 kg
[~2016-10-17 15:44] MED LIST changes: -ADDE10 PO; -DIAZ5 PO; +DOXY100C PO; +IBUP-232 PO; +KETOROLAC TROMETHAMINE 60 MG/2 ML (IM) VIAL IM ONE; +LACTATED RINGER'S 1000 ML INJ 1,000 ML IV ONE; +METR-1 PO; +OXYC1TAB63 PO; +SENN1TAB PO
[2016-10-17] MEDS ORDERED: AMPH1TAB29 PO (16:24)
[2016-10-17 16:26] VITALS: BP 113/71; PULSE 84; RESP 18; TEMP 98.8; O2SAT 100
[2016-10-17] MEDS ORDERED: MIDAZOLAM HCL 2 MG/2 ML VIAL ONE (16:54)
[2016-10-17] MEDS ORDERED: ceFAZolin INJ 1,000 MG VIAL ONE (16:54)
[2016-10-17] MEDS ORDERED: fentaNYL CITRATE 250 MCG/5 ML AMP ONE (17:04)
[2016-10-17 17:11] LABS: BASOPHIL # 0.1 TH/MM3 (0-0.2); BASOPHIL % 0.4 % (0.0-2.0); EOSINOPHIL % 0.1 % (0.0-4.0); HEMATOCRIT 40.2 % (35.0-46.0); HEMO FLAGS DIFF FINAL; LYMPH % 7.6 % (9.0-44.0); LYMPHOCYTE # 1.3 TH/MM3 (1.0-4.8); MEAN CORPUSCULAR HEMOGLOBIN 29.5 PG (27.0-34.0); MEAN CORPUSCULAR HGB CONC 33.9 % (32.0-36.0); MONO % 3.8 % (0.0-8.0); NEUT % 88.1 % (16.0-70.0); PLATELET COUNT 266 TH/MM3 (150-450); RED BLOOD COUNT 4.62 MIL/MM3 (4.00-5.30); RED CELL DISTRIBUTION WIDTH 12.6 % (11.6-17.2)
[2016-10-17] MEDS ORDERED: metroNIDAZOLE 500 MG INJ 100 ML IV ONE (17:19)
[2016-10-17 17:29] LABS: ALT (GPT) 19 U/L (10-53); ANION GAP 11 MEQ/L (5-15); AST (GOT) 13 U/L (15-37); BICARBONATE 24.9 MEQ/L (21.0-32.0); BLOOD UREA NITROGEN 13 MG/DL (7-18); CHLORIDE 105 MEQ/L (98-107); GLOMERULAR FILTRATION RATE 86 ML/MIN (>89); POTASSIUM 3.8 MEQ/L (3.5-5.1); SODIUM (NA) 141 MEQ/L (136-145)
[2016-10-17 17:32] LABS: ALKALINE PHOSPHATASE 76 U/L (45-117); TOTAL BILIRUBIN ADULT 0.6 MG/DL (0.2-1.0)
[2016-10-17] MEDS ORDERED: *morphine SULFATE 8 MG/ML PERIprocedure ONLY ONE ×2 (17:57→18:07)
[2016-10-17] MEDS ORDERED: PROMETHAZINE INJ 25 MG/ML VIAL IM PRN (18:00)
[2016-10-17] MEDS ORDERED: oxyCODONE/ACETAMINOPHEN 5 MG/325 MG TAB PO PRN (18:00)
[2016-10-17] MEDS ORDERED: ONDANSETRON HCL 4 MG/2 ML VIAL IVP PRN (18:00)
[2016-10-17] MEDS ORDERED: ONDANSETRON ODT 4 MG TAB PO PRN (18:00)
[2016-10-17] MEDS ORDERED: SODIUM CHLORIDE 0.9% FLUSH 10 ML FLUSH IV FLUSH PRN (18:00)
[2016-10-17] MEDS ORDERED: ZOLPIDEM TARTRATE 5 MG TAB PO PRN (18:00)
[2016-10-17 18:07] LABS: BLOOD, URINE NEG (NEG); COMMENT (UR) CULT NOT INDICATED; CULTURE IF INDICATED CULT NOT INDICATED; GLUCOSE,URINE NEG (NEG); KETONE, URINE NEG (NEG); MUCUS URINE FEW /lpf (OCC); NITRITE,URINE NEG (NEG); PH, URINE 5.5 (5.0-8.5); SQUAMOUS EPITHELIAL CELL URINE 1 /hpf (0-5); URINE COLOR YELLOW (YELLW/STRAW)
[2016-10-17] MEDS ORDERED: ACETAMINOPHEN 1000 MG/100 ML VIAL IV ONE ×2 (18:10→19:45)
[2016-10-17] MEDS ORDERED: *HYDROmorphone PF 1 MG VIAL PERIprocedural Use ONLY ONE (18:10)
[2016-10-17] MEDS ORDERED: *MEPERIDINE 25 MG INJ VIAL PERIprocedural Use ONLY ONE (18:30)
[2016-10-17] MEDS: LACTATED RINGER'S 1000 ML INJ 1,000 ML IV SCH (18:45)
[2016-10-17] MEDS ORDERED: DIMETHICONE/OXYBENZONE/PADMIATE LIP BALM 4.25 GM TOPICAL ONE (19:30)
[2016-10-17] MEDS ORDERED: DO NOT ADM ANY ANTICOAGULANT DRUGS PRN (19:45)
[2016-10-17] MEDS: HYDROmorphone HCL PF 1 MG/ML VIAL IV PUSH PRN ×2 (20:02→20:03)
[2016-10-17 20:53] VITALS: BP 129/83; PULSE 74; RESP 17; TEMP 96.4; O2SAT 98
[2016-10-17] MEDS: SODIUM CHLORIDE 0.9% FLUSH 10 ML FLUSH IV FLUSH SCH (21:00)
[2016-10-17] MEDS ORDERED: DIMETHICONE/OXYBENZONE/PADMIATE LIP BALM 4.25 GM TOPICAL PRN (21:15)
[2016-10-17] MEDS: DOCUSATE SODIUM 100 MG CAP PO SCH (21:39)
[2016-10-18] VITALS: BP 119/78; PULSE 79; RESP 16; TEMP 96.7; O2SAT 97
[2016-10-18] MEDS: HYDROmorphone HCL PF 1 MG/ML VIAL IV PRN ×3 (01:10→21:05)
[2016-10-18] MEDS: metroNIDAZOLE 500 MG INJ 100 ML IV SCH ×3 (01:18→21:06)
[2016-10-18 04:00] VITALS: BP 103/60; PULSE 77; RESP 16; TEMP 97.8; O2SAT 99
[2016-10-18] MEDS: oxyCODONE/ACETAMINOPHEN 5 MG/325 MG TAB PO PRN ×4 (04:50→18:43)
[2016-10-18] MEDS: LACTATED RINGER'S 1000 ML INJ 1,000 ML IV SCH ×2 (04:52→21:13)
[2016-10-18 07:30] VITALS: BP 106/58; PULSE 79; RESP 20; TEMP 97.8; O2SAT 100
[2016-10-18] MEDS: DOCUSATE SODIUM 100 MG CAP PO SCH ×2 (08:59→21:04)
[2016-10-18] MEDS: SODIUM CHLORIDE 0.9% FLUSH 10 ML FLUSH IV FLUSH SCH ×2 (09:01→21:07)
[2016-10-18 11:37] VITALS: BP 114/65; PULSE 79; RESP 20; TEMP 97.4; O2SAT 100
--- NOTE | 2016-10-18 11:46 | HHI.PR ---
Subjective Remarks Doing ok Some sharp pains in the lower abdomen. Good flatus No nausea or vomiting. Tolerating diet well Small vaginal bleeding Objective Vital Signs Date Time Temp Pulse Resp B/P Pulse Ox O2 Delivery O2 Flow Rate FiO2 10/18/16 11:37 97.4 79 20 114/65 100 10/18/16 07:30 97.8 79 20 106/58 100 10/18/16 04:00 97.8 77 16 103/60 99 10/18/16 00:00 96.7 79 16 119/78 97 10/17/16 20:53 96.4 74 17 129/83 98 10/17/16 20:15 98.2 81 16 99 Room Air 10/17/16 20:00 80 14 120/70 100 Room Air 10/17/16 19:05 Room Air 10/17/16 19:00 76 14 118/72 100 Nasal Cannula 2 10/17/16 18:45 84 22 111/65 100 Nasal Cannula 2 10/17/16 18:30 82 22 120/82 100 Nasal Cannula 2 10/17/16 18:15 91 18 120/79 100 Nasal Cannula 2 10/17/16 18:00 90 16 122/73 100 Nasal Cannula 2 10/17/16 17:54 97.7 96 12 119/72 100 Nasal Cannula 2 10/17/16 16:26 98.8 84 18 113/71 100 I/O 10/17/16 10/17/16 10/17/16 10/18/16 10/18/16 10/18/16 07:00 15:00 23:00 07:00 15:00 23:00 Intake Total 2290 ml 480 ml Output Total 570 ml 1050 ml Balance 1720 ml -570 ml Intake Oral 290 ml 480 ml IV Total 1000 ml Other 1000 ml Output Urine Total 550 ml 1050 ml Estimated Blood Loss 20 ml Result Diagram: 10/17/16 1630 10/17/16 1630 Other Results Chest is clear CV RRR Abdomen is soft, good BS, mildly tender in the suprapubic area. Ext no CCE Assessment and Plan Assessment and Plan POD #1 S/P repair of vaginal cuff Uncertain why this cuff broke down again. She may have an issue with healing but has never had any problems with this with her other surgeries. Shalini Youssef MD Oct 18, 2016 11:46
[2016-10-18 15:50] VITALS: BP 109/59; PULSE 86; RESP 20; TEMP 97.5; O2SAT 99
[2016-10-18 17:18] LABS: AUTOMATED NEUTROPHIL # 6.5 TH/MM3 (1.8-7.7); BASOPHIL % 0.3 % (0.0-2.0); EOSINOPHIL % 0.2 % (0.0-4.0); HEMATOCRIT 33.9 % (35.0-46.0); HEMO FLAGS DIFF FINAL; LYMPH % 24.1 % (9.0-44.0); LYMPHOCYTE # 2.3 TH/MM3 (1.0-4.8); MEAN CELL VOLUME 87.8 FL (80.0-100.0); MEAN CORPUSCULAR HEMOGLOBIN 29.9 PG (27.0-34.0); MONO % 6.2 % (0.0-8.0); NEUT % 69.2 % (16.0-70.0); PLATELET COUNT 222 TH/MM3 (150-450); RED BLOOD COUNT 3.86 MIL/MM3 (4.00-5.30); RED CELL DISTRIBUTION WIDTH 12.8 % (11.6-17.2); WHITE BLOOD COUNT 9.3 TH/MM3 (4.0-11.0)
[2016-10-18] MEDS: IBUPROFEN 600 MG TAB PO PRN (19:58)
[2016-10-18 20:00] VITALS: BP 111/63; PULSE 90; RESP 17; TEMP 98.3; O2SAT 100
--- NOTE | 2016-10-18 20:49 | MP ---
cc: Shalini YOUSSEF KELLY L. MD DATE OF SURGERY October 17, 2016 PREOPERATIVE DIAGNOSIS Vaginal cuff dehiscence POSTOPERATIVE DIAGNOSIS Vaginal cuff dehiscence PROCEDURE Repair of the vaginal cuff dehiscence ANESTHESIA General SURGEON Shalini Youssef MD CO-SURGEON Darell Garnica MD FINDINGS The vagina was clean. The cuff posteriorly had a tear approximately 4 x 5 cm with a piece of omentum hanging pit/ COMPLICATIONS None. COUNTS Correct. ESTIMATED BLOOD LOSS Minimal. DISPOSITION The patient tolerated the procedure well, went to recovery room in good condition. PROCEDURE IN DETAIL The patient was taken to the operating room identified by name band and verbally given a general anesthetic. She was prepped and draped in the usual sterile fashion for vaginal surgery in the dorsolithotomy position. We began by washing out the vagina with antiseptic solution of Hibiclens and water and pushed the bowel back. A weighted speculum was placed into the vagina and the vaginal cuff was grasped with several Alices. The edges of the dehiscence were perfectly healthy and we debated whether to trim the vaginal cuff, however, it looked healthy and we felt we could do this without trimming the mucosa. Using 0 PDS with supvkm-ho-pzbox fashion we took large bites of the vaginal cuff and repaired the defect without difficulty. At this point, we irrigated the vagina with a large amount of fluid and removed all the instruments and took her to the recovery room in good condition. Shalini Youssef MD RJV/ /11:48 AM /8:40 PM
[2016-10-19] VITALS: BP 108/59; PULSE 75; RESP 16; TEMP 97.7; O2SAT 99
[2016-10-19] MEDS: metroNIDAZOLE 500 MG INJ 100 ML IV SCH (02:00)
[2016-10-19 04:00] VITALS: BP 99/57; PULSE 78; RESP 17; TEMP 96.6; O2SAT 98
[2016-10-19] MEDS: LACTATED RINGER'S 1000 ML INJ 1,000 ML IV SCH (04:04)
[2016-10-19] MEDS: oxyCODONE/ACETAMINOPHEN 5 MG/325 MG TAB PO PRN (04:59)
[2016-10-19 08:00] VITALS: BP 116/73; PULSE 76; RESP 20; TEMP 98; O2SAT 99
[2016-10-19] MEDS: DOCUSATE SODIUM 100 MG CAP PO SCH (08:53)
[2016-10-19] MEDS: SODIUM CHLORIDE 0.9% FLUSH 10 ML FLUSH IV FLUSH SCH (08:55)
--- NOTE | 2016-10-19 10:19 | HHI.PR ---
Subjective Remarks Doing ok Some sharp pains in the lower abdomen. Good flatus No nausea or vomiting. Tolerating diet well Small vaginal bleeding Objective Vital Signs Date Time Temp Pulse Resp B/P Pulse Ox O2 Delivery O2 Flow Rate FiO2 10/19/16 08:00 98.0 76 20 116/73 99 10/19/16 04:00 96.6 78 17 99/57 98 10/19/16 00:00 97.7 75 16 108/59 99 10/18/16 20:00 98.3 90 17 111/63 100 10/18/16 15:50 97.5 86 20 109/59 99 10/18/16 11:37 97.4 79 20 114/65 100 I/O 10/18/16 10/18/16 10/18/16 10/19/16 10/19/16 10/19/16 06:59 14:59 22:59 06:59 14:59 22:59 Intake Total 480 ml 1185 ml 1280 ml 940 ml Output Total 1050 ml 800 ml 200 ml 400 ml Balance -570 ml 385 ml 1080 ml 540 ml Intake Oral 480 ml 480 ml 480 ml 240 ml IV Total 705 ml 800 ml 700 ml Output Urine Total 1050 ml 800 ml 200 ml 400 ml # Bowel Movements 0 Result Diagram: 10/18/16 1510 10/17/16 1630 Assessment and Plan Assessment and Plan POD #1 S/P repair of vaginal cuff Uncertain why this cuff broke down again. She may have an issue with healing but has never had any problems with this with her other surgeries. Shalini Youssef MD Oct 19, 2016 10:19
[2016-10-19] MEDS ORDERED: OXYC1TAB63 PO (11:11)
[2016-10-19] MEDS ORDERED: METR-1 PO (11:11)
[2016-10-19] MEDS ORDERED: IBUP-232 PO (11:11)
--- NOTE | 2016-10-19 11:12 | HHI.DCPOC ---
Discharge Care Plan Diagnosis: (1) Evisceration of bowel (2) Surgical wound dehiscence Report Symptoms to Your Doctor -Temperature above 100.5 degrees -Redness, of incision or excessive or foul smelling drainage -Unusual pain or calf pain -Increased vaginal bleeding -Painful or difficulty urinating -Feelings of extreme sadness or anxiety after 2 weeks Goals to Promote Your Health * To prevent worsening of your condition and complications * To maintain your health at the optimal level Directions to Meet Your Goals Take your medications as prescribed Follow your dietary instruction Follow activity as directed Ensure plenty of rest for recovery Drink fluids for hydration Keep your appointments as scheduled Take your immunizations and boosters as scheduled If your symptoms worsen call your PCP, if no PCP go to Urgent Care Center or Emergency Room Smoking is Dangerous to Your Health. Avoid second hand smoke Call the 24-hour crisis hotline for domestic abuse at Shalini Youssef MD Oct 19, 2016 11:12
[2016-10-19] MEDS: IBUPROFEN 600 MG TAB PO PRN (11:27)
--- NOTE | 2016-10-20 08:09 | MP ---
cc: FRANCISCA YOUSSEF KELLY L. MD DATE OF SURGERY: 10/17/2016 PREOPERATIVE DIAGNOSIS Vaginal cuff dehiscence. POSTOPERATIVE DIAGNOSIS Vaginal cuff dehiscence. PROCEDURE Examination under anesthesia, repair of vaginal cuff. SURGEON Rosette Garnica CO-SURGEON Francisca Youssef ANESTHESIA General endotracheal. ESTIMATED BLOOD LOSS Less than 20 cc. HISTORY This is a 30-year-old female who had a previous hysterectomy and actually had a prior episode of cuff dehiscence requiring surgical repair. She has now had approximately three months of pelvic rest, was examined and appeared to have been healed well. However, after intimate activity reported pain and bleeding and was seen by Dr. Youssef in his office. Exam confirmed cuff dehiscence and she was instructed to present to the hospital. She is seen in the pre-op holding area where I spoke to her with Dr. Francisca Youssef regarding the findings and the plan for exam under anesthesia and surgical repair. FINDINGS On exam under anesthesia there was cuff dehiscence along most of the length of the previous vaginal cuff closure. There was omentum and loop of small bowel visible at the cuff which was easily reduced with Trendelenburg position. There were no adhesions. The tissue looked healthy and the reason for the separation could not be determined. There was no evidence of infection, no evidence of compromised blood supply or any other overt explanation for these findings. DETAILS OF PROCEDURE The patient was taken to the operating room and placed in dorsal lithotomy position. After general endotracheal anesthesia was administered a timeout was undertaken. The patient was identified by sight recognition and hospital ID bracelet and the proposed procedure was reviewed and confirmed. An exam under anesthesia was performed with findings as described above. She was prepped and draped in a sterile fashion. The vagina was copiously irrigated and cleansed. The edges of the cuff were grasped with Allis clamps. Digital exam confirmed that the bladder was retracted ventrally, rectum posteriorly. There were no adhesions. Additional irrigation and cleansing was undertaken of the vaginal area. The cuff was then closed starting at the corners with interrupted [id number] 0 PDS sutures and continued cuff closure with interrupted [id number] PDS (delayed absorbable) sutures to reapproximate the tissue without excessive tightening or tension which brought the cuff together satisfactorily with complete hemostasis, good reapproximation and anatomical support. Inspection confirmed there were no remaining foreign objects in the vagina. Additional irrigation of the vagina was carried out. Preliminary and final counts were correct. She was returned to dorsal supine position and pending reversal of anesthesia when I left the operating room to precede her to the post-anesthesia care unit. MD ROSANGELA Bravo/CARLOS /7:51 AM /8:01 AM
== END 2016-10-19 11:42 | disposition home or self-care (01) ==
LOC: HOR 15:44 → HOCA 20:49
PROVIDERS: ADMIT Obstetrics & Gynecology; ATTEND Obstetrics & Gynecology
DX: T81.31XA Disruption of external operation (surgical) wound, not elsewhere classified, initial encounter (principal); M79.7 Fibromyalgia; Y83.8 Other surgical procedures as the cause of abnormal reaction of the patient, or of later complication, without mention of misadventure at the time of the procedure
CPT/HCPCS: 00940; 12020; 80053; 81001; 85025; G0378; J0131; J0690; J1170; J1885; J2175; J2250; J2270; J2405; J3010; J7120

== ENCOUNTER 2017-01-11 08:05 | Emergency (ER) | payer BC ==
[~2017-01-11] VITALS: Ht 170.2 cm; Wt 77.8 kg
[~2017-01-11 08:05] MED LIST changes: +AMPH1TAB29 PO; -DOXY100C PO; -KETOROLAC TROMETHAMINE 60 MG/2 ML (IM) VIAL IM ONE; -LACTATED RINGER'S 1000 ML INJ 1,000 ML IV ONE; -ONDANSETRON HCL 4 MG/2 ML VIAL IV PUSH ONE; -PROPOFOL 200 MG/20 ML AMP IV ONE; -SENN1TAB PO
[2017-01-11 08:07] VITALS: BP 118/79; PULSE 74; RESP 18; TEMP 98.5; O2SAT 98
[2017-01-11] MEDS ORDERED: AUGM875T3 PO (08:15)
[2017-01-11] MEDS ORDERED: ONDANSETRON ODT 4 MG TAB PO/SL ONE (08:15)
[2017-01-11] MEDS ORDERED: HYDROmorphone HCL PF 1 MG/ML VIAL IM ONE ×2 (08:15→09:00)
--- NOTE | 2017-01-11 08:28 | PD ---
HPI Chief Complaint: Headache Time Seen by Provider: 08:13 Travel History International Travel<30 days: No Contact w/Intl Traveler<30days: No Traveled to known affect area: No History of Present Illness HPI Patient presents with complaints of migraine for 3 days. Reports mild improvement with Toradol injection from her PCP with return of her headache. Located in the right parietal region. Positive nausea and vomiting. Positive photophobia. Positive aura. Denies any chest pain shortness of breath urinary or bowel symptoms. Similar to previous migraines. Denies any head trauma. PFSH Past Medical History Blood Disorders: No Cancer: No Cardiovascular Problems: No Diabetes: No Diminished Hearing: No Endocrine: No Fibromyalgia: Yes Gastrointestinal Disorders: No Glaucoma: No Genitourinary: Yes (KIDNEY STONE ) Hepatitis: No Hypertension: No Immune Disorder: No Implanted Vascular Access Dvce: No Musculoskeletal: Yes (L5 S1 PROBLEMS , BROKEN L FOOT) Neurologic: No Psychiatric: Yes (ANXIETY) Reproductive: Yes Respiratory: No Immunizations Current: Yes Thyroid Disease: No ?: Not : 3 Para: 2 Miscarriage: 1 Past Surgical History Abdominal Surgery: Yes (CHOLECYSTECTOMY 2008) AICD: No Arteriovenous Shunt: No Cardiac Surgery: No Section: Yes Cholecystectomy: Yes Ear Surgery: No Endocrine Surgery: No Eye Surgery: No Genitourinary Surgery: No Gynecologic Surgery: No Hysterectomy: Yes Insulin Pump: No Joint Replacement: No Neurologic Surgery: No Oral Surgery: Yes (T&A) Pacemaker: No Thoracic Surgery: No Tonsillectomy: Yes Other Surgery: Yes (1997 LYMPH NODE NECK REMOVED) Social History Alcohol Use: Yes (SOCIALLY) Tobacco Use: No (QUIT 3 YRS AGO) Substance Use: No Allergies-Medications (Allergen,Severity, Reaction): Coded Allergies: No Known Allergies (Unverified , 01/11/17) Reported Meds & Prescriptions Reported Meds & Active Scripts Active Reported Augmentin (Amoxicillin-Clavulanate) 875-125 Mg Tab 1 Tab PO BID Review of Systems General / Constitutional: No: Fever Eyes: No: Visual changes HENT: Positive: Headaches Cardiovascular: No: Chest Pain or Discomfort Respiratory: No: Shortness of Breath Gastrointestinal: No: Abdominal Pain Genitourinary: No: Dysuria Musculoskeletal: No: Pain Skin: No Rash Neurologic: No: Weakness Psychiatric: No: Depression Endocrine: No: Polydipsia Hematologic/Lymphatic: No: Easy Bruising Physical Exam Narrative GENERAL: Well-nourished, well-developed patient. SKIN: Focused skin assessment warm/dry. HEAD: Normocephalic. EYES: No scleral icterus. No injection or drainage. NECK: Supple, trachea midline. No JVD or lymphadenopathy. CARDIOVASCULAR: Regular rate and rhythm without murmurs, gallops, or rubs. RESPIRATORY: Breath sounds equal bilaterally. No accessory muscle use. GASTROINTESTINAL: Abdomen soft, non-tender, nondistended. MUSCULOSKELETAL: No cyanosis, or edema. BACK: Nontender without obvious deformity. No CVA tenderness. Data Data Last Documented VS Vital Signs Date Time Temp Pulse Resp B/P (MAP) Pulse Ox O2 Delivery O2 Flow Rate FiO2 01/11/17 08:07 98.5 74 18 118/79 (92) 98 Orders Orders Ondansetron Odt (Zofran Odt) (01/11/17 08:15) Hydromorphone Pf Inj (Dilaudid Pf Inj) (01/11/17 08:15) Hydromorphone Pf Inj (Dilaudid Pf Inj) (01/11/17 09:00) [facility] Medical Decision Making Medical Screen Exam Complete: Yes Emergency Medical Condition: Yes Differential Diagnosis Cluster headache, tension headache, migraine, cephalgia Narrative Course Assessment and plan discussed with patient and friend at bedside. Dilaudid and Zofran with improvement of headache. Diagnosis Primary Impression: Migraine Qualified Codes: G43.101 - Migraine with aura, not intractable, with status migrainosus Patient Instructions: General Instructions Additional Instructions: Rest and fluids. Follow-up with PCP. Return to emergency room with any onset of new symptoms. Med/Other Pt SpecificInfo: Prescription(s) given Scripts Promethazine (Phenergan) 25 Mg Tablet 25 MG PO Q6H Y for NAUSEA OR VOMITING, #20 TAB 0 Refills Prov: Jose Brown MD 01/11/17 Hydrocodone-Acetaminophen (Hydrocodone-Acetaminophen) 10-325 mg Tab 1 TAB PO Q4H Y for PAIN, #20 TAB 0 Refills Prov: Jose Brown MD 01/11/17 Disposition: 01 DISCHARGE HOME Condition: Good Jose Brown MD Jan 11, 2017 08:28
[2017-01-11] MEDS ORDERED: PROM25TA10 PO (09:23)
[2017-01-11] MEDS ORDERED: HYDR-3583 PO (09:23)
[2017-01-11 09:34] VITALS: BP 122/78
== END 2017-01-11 09:35 | disposition home or self-care (01) ==
LOC: PHED 08:05
DX: G43.101 Migraine with aura, not intractable, with status migrainosus (principal); Z87.39 Personal history of other diseases of the musculoskeletal system and connective tissue; Z87.442 Personal history of urinary calculi; Z86.59 Personal history of other mental and behavioral disorders; Z87.42 Personal history of other diseases of the female genital tract
CPT/HCPCS: 96372; 99284; J1170

== ENCOUNTER 2017-02-21 17:32 | Emergency (ER) | payer OTHER, BC ==
[~2017-02-21] VITALS: Ht 170.2 cm; Wt 80.5 kg
[~2017-02-21 17:32] MED LIST changes: -AMPH1TAB29 PO; +AUGM875T3 PO; +HYDR-3583 PO; -IBUP-232 PO; -METR-1 PO; -OXYC1TAB63 PO; +PROM25TA10 PO
[2017-02-21 17:37] VITALS: BP 115/77; PULSE 98; RESP 16; TEMP 98.4; O2SAT 98
[2017-02-21] MEDS ORDERED: AMPH1TAB29 PO (17:46)
[2017-02-21] MEDS ORDERED: KETOROLAC TROMETHAMINE 60 MG/2 ML (IM) VIAL IM ONE (18:30)
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
[2017-02-21] MEDS ORDERED: IBUP1TAB7 PO (19:09)
[2017-02-21] MEDS ORDERED: ROBA500T PO (19:09)
== END 2017-02-21 19:18 | disposition home or self-care (01) ==
LOC: PHEFT 17:32
DX: S16.1XXA Strain of muscle, fascia and tendon at neck level, initial encounter (principal); M79.7 Fibromyalgia; V49.40XA Driver injured in collision with unspecified motor vehicles in traffic accident, initial encounter; Y92.410 Unspecified street and highway as the place of occurrence of the external cause; Z79.899 Other long term (current) drug therapy
CPT/HCPCS: 72125; 96372; 99285; J1885